=== PATIENT | male | born 1975 | race African-American/Black ===

== ENCOUNTER 2020-10-15 00:49 | Emergency (ER) | payer OTHER ==
[~2020-10-15] VITALS: Ht 170.2 cm; Wt 77.3 kg
[2020-10-15] MEDS ORDERED: ACETAMINOPHEN 500 MG TABLET PO ONE (02:15)
[2020-10-15] MEDS ORDERED: PERTUSS(ACELL),DIPH,TET VAC/PF 0.5 ML SYRINGE IM. ONE (02:15)
[2020-10-15 03:05] VITALS: BP 141/86
== END 2020-10-15 03:44 ==
LOC: EMS 00:52
DX: S63.610A Unspecified sprain of right index finger, initial encounter (principal); I10 Essential (primary) hypertension; W19.XXXA Unspecified fall, initial encounter; Y93.39 Activity, other involving climbing, rappelling and jumping off; Y92.89 Other specified places as the place of occurrence of the external cause; Y99.8 Other external cause status
CPT/HCPCS: 90471; 90715; 99284